=== PATIENT | female | born 1985 | race Caucasian/White ===

== ENCOUNTER 2022-04-16 09:46 | Emergency (ER) | payer MEDICAID, SELFPAY ==
[2022-04-16 10:01] VITALS: BP 109/63; PULSE 75; RESP 14; TEMP 36.3; O2SAT 97
--- NOTE | 2022-04-16 10:43 | DI.RAD_ITS ---
Exam(s) XR FOOT LT COMPLETE EXAM: XR FOOT LT COMPLETE CLINICAL HISTORY: fall pain to mid- first metatarsal. TECHNIQUE: 2D digital imaging was performed of the left foot. Three images were obtained. AP, obli que and lateral views were obtained. COMPARISON: No exams were available for comparison FINDINGS: BONES: On the oblique view, there is interruption of the cortex at the medial aspect of the head of t he 1st metatarsal. This may represent an erosion or possible fracture. No other evidence of a fract ure is identified. No bony destructive lesion is seen. JOINTS: No dislocation present. SOFT TISSUE: Normal. IMPRESSION: 1. Cortical interruption at the medial aspect of the head of the 1st metatarsal. This is only apprec iated on the oblique view. This may represent an erosion possibly or fracture. Please correlate wit h the patient's site of pain. If further imaging is warranted, a CT scan may be obtained. Alternati misael, a follow-up examination in 10-14 days may be obtained. 2. Results of this exam have been verbally communicated with provider. DATA REPOSITORY: RADIATION DOSE DELIVERED:
--- NOTE | 2022-04-16 11:29 | ED.GENADUL_ITS ---
Discharge Plan Disposition Patient Disposition: HOME Condition: Stable Discharge Details Clinical Impression: Injury of foot, left Primary Care Provider: Radha Medina ED Provider: Hayden Walker Discharge Instructions Instructions: Foot Fracture in Adults (ED) Additional Instructions: There is a possible fracture at the end of your first metatarsal. It is very subtle and will need orthopedic follow-up for repeat imaging. At this time we will place you in a short walking boot and if it is possible it is generally recommended to be nonweightbearing until you see orthopedist. If you have any new or significant worsening of symptoms feel free to return to the emergency department for reassessment. You may continue to take [id number] pain medication and keep foot elevated. Referrals: Local, orthopedics [Other] - 3 days Discharge Data Discharge Date/Time-TO BE ENTERED AT DEPARTURE: 04/16/22 11:43 Medical Decision Making Patient presenting the emergency department for chief complaint of fall with left foot injury. Patient denies any other injury or trauma but states medial midfoot pain. Physical exam shows ecchymosis and tenderness to the midshaft first metatarsal to the end of the first metatarsal. No other acute findings are noted. We will perform radiological imaging and patient denies any need for pain medication at this time. Review of radiological imaging shows a small cortical abnormality on the medial aspect of the distal first metatarsal. Spoke to radiologist and question of possible fracture with recommendation of CT imaging versus repeat imaging. Discussed both options with patient and patient states that she would prefer to follow-up with local orthopedics and had reassessment done next week. I feel this is reasonable. Due to possible first metatarsal fracture did recommend for patient to be nonweightbearing. She stated that this was not possible due to her having twin 1-year-olds. Patient was placed in a short walking boot and recommended to be nonweightbearing as much as possible. Imaging discussed provided the patient and she is clearly states follow-up understanding. After discussion of diagnosis and plan of care patient has no further needs, questions, or concerns and states clear understanding to return to the emergency department for any worsening symptoms. This documentation was generated using [employer] system, please disregard any oddities of phrase or misspellings. HPI General Mode of arrival: ambulatory . Date/Time Provider Initiated Documentation: 04/16/22 10:01 . Limitations to Documentation: no limitations . Information obtained by: patient and RN notes reviewed . History of Present Illness 36 year old F presents to the emergency department with the chief complaint of left foot injury, described as moderate, with intensity rated at 8. Quality is described as sharp, and is localized to the left and lower extremity. Patient reports no radiation. Patient started experiencing this hour(s) (1) and it has been constant. No relieving factors improve symptom(s), No exacerbating factors reported . Patient notes no other sympto ms.. Patient did receive the following treatments prior to arrival, none Related Data Allergies Allergy/AdvReac Type Severity Reaction Status Date / Time red (food color) Allergy Unverified 04/16/22 10:05 tomato Allergy Unverified 04/16/22 10:05 topiramate [From Topamax] AdvReac Unverified 04/16/22 10:05 General Stated Complaint: Orthopedic VICTOR M: 4 Review of Systems Narrative: 8 systems reviewed and unremarkable except what is marked below. 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 Do you feel safe at home: Yes Do you feel safe in your relationship?: Yes Exam Const General: cooperative, no acute distress and not ill appearing Orientation: alert, awake and oriented x3 Resp Effort & Inspection: normal respiratory effort, able to speak in complete sentences and no respiratory distress Cardio Rate: regular rate Rhythm: regular rhythm Pulses: normal peripheral pulses Skin General skin exam: no rashes or lesions noted Neuro General: patient alert, patient awake, patient oriented x3, moves all extremities and no focal motor deficits Sensory Exam: no sensory deficits noted Extrem General: normal exam except as noted Left lower extremity: foot Details: normal capillary refill and tenderness Location: of the dorsal foot Location: distally and medially Course Vital Signs Vital signs: Vital Signs Temperature 36.3 C L 04/16/22 10:01 Pulse 75 04/16/22 10:01 Respiratory Rate 14 04/16/22 10:01 Blood Pressure 109/63 04/16/22 10:01 Pulse Oximetry 97 04/16/22 10:01 Temperature 36.3 C L 04/16/22 10:01 Temperature Source Temporal Artery Scan 04/16/22 10:01 Pulse 75 04/16/22 10:01 Respiratory Rate 14 04/16/22 10:01 Respiratory Effort Non-Labored 04/16/22 10:06 Blood Pressure 109/63 04/16/22 10:01 Blood Pressure Position Supine 04/16/22 10:01 Pulse Oximetry 97 04/16/22 10:01 Oxygen Delivery Method Room Air 04/16/22 10:01 Oxygen Flow Rate 0 04/16/22 10:01 Pain Level 8 04/16/22 10:01 PAWSS Have you Been Recently Intoxicated or Drunk Within the Last 30 days?: No Have you Ever Experienced Previous Episodes of Alcohol Withdrawal?: Yes Have you ever Experienced Withdrawal Seizures?: No Have you ever Experienced Delirium Tremens(DT)s?: No Have you ever undergone Alcohol Rehabilitation Treatment (i.e, inpt ot outpatient treatment programs)?: Yes Have you ever Experienced Blackouts?: No Have you ever Combined Alcohol with other Downers within the last 90 days?: No Have you ever Combined Alcohol with any other Substance of Abuse during the last 90 days?: No Positive Blood Alcohol level on Presentation? [PCS.BAL]: No Evidence of Increased Autonomic Activity (i.e. HR>120, tremor, sweating, agitation, nausea)?: No Result: 2
== END 2022-04-16 11:43 | disposition home or self-care (01) ==
PROVIDERS: Emergency Provider Nurse Practitioner Family; PCP Nurse Practitioner Family
DX: S90.32XA Contusion of left foot, initial encounter (principal); W19.XXXA Unspecified fall, initial encounter
CPT/HCPCS: 99283; 73630; 99282